=== PATIENT | female | born 1970 | race Hispanic/Latino ===

== ENCOUNTER 2022-09-20 23:21 | Emergency (ER) | END 2022-09-20 23:55 | disposition left against medical advice (07) | LOC: ER 23:50 | DX: N39.0 Urinary tract infection, site not specified (principal) ==

== ENCOUNTER → 2025-01-17 | Day surgery (SDC) | payer BC, OTHER ==
[~2025-01-17] MED LIST: ACETAMINOPHEN 1000 MG/100 ML 100 ML IV ONE; DEXAMETHASONE SOD PHOS INJ 4 MG/ML SDV ONE; FAMOTIDINE 20 MG/2 ML VIAL IV ONE; FENTANYL CITRATE/PF 100MCG/2 ML INJ ONE; LEVOTHYROXINE50 MCG PO; LIDOCAINE HCL 2% LOCAL INJ 5 ML SDV VIAL INJ ONE; MIDAZOLAM HCL 2 MG/2 ML VIAL ONE; ONDANSETRON HCL INJ 2MG/ML 2ML 2 MG/ML VIAL ONE; PENICILLIN PO; PROPOFOL IV EMULSION 10 MG/ML 20 ML VIAL ONE; SEVOFLURANE INHAL SOLN 250 ML PEN BTL ONE
[2025-01-17] MEDS: SODIUM CHLORIDE 0.9% 1000ML 1,000 ML ONE (06:31)
[2025-01-17] MEDS: CEFTRIAXONE 1 GM VIAL ONE (06:31)
[2025-01-17 08:21] VITALS: TEMP 98.1
[2025-01-17 10:00] VITALS: BP 106/70; PULSE 45; RESP 18; O2SAT 100
== END | disposition home or self-care (01) ==
LOC: OR 05:58
PROVIDERS: ATTEND Urology
DX: N35.92 Unspecified urethral stricture, female (principal); N30.10 Interstitial cystitis (chronic) without hematuria; E03.9 Hypothyroidism, unspecified; Z79.890 Hormone replacement therapy; Z88.1 Allergy status to other antibiotic agents; Z88.8 Allergy status to other drugs, medicaments and biological substances; Z87.440 Personal history of urinary (tract) infections; Z01.810 Encounter for preprocedural cardiovascular examination; Z79.2 Long term (current) use of antibiotics
CPT/HCPCS: 52260; 74420; 93005; C1758; J0131; J0696; J1100; J1308; J2003; J2250; J2405; J2704; J3010; J7030